=== PATIENT | female | born 1945 | race Two or more races ===

== ENCOUNTER → 2016-11-17 | Day surgery (SDC) | payer MEDICARE, OTHER ==
[~2016-11-17] MED LIST: ASPI81TA50 PO; CARV6.252 PO; GLYCOPYRROLATE 1 MG/5 ML VIAL. ONE; HYDR50TA6 PO; IV RINGERS,LACTATED 1000ML 1,000 ML IV SCH; LEVO100T5 PO; LIDOCAINE 2% PF Vial for OR 5 ML VIAL. ONE; LOSA1TAB22 PO; PRAV80TA2 PO; PROPOFOL 40 ML IV ONE
[2016-11-17 08:52] VITALS: BP 105/54
--- NOTE | 2016-11-17 12:18 | HP ---
ADMIT DATE: 11/17/2016 HISTORY OF PRESENT ILLNESS: A 71-year-old female with past medical history significant for arthritis, asthma and diverticulosis, comes with high blood pressure, seen for a screening colon exam. Bowel habits have been regular without melena or hematochezia. There has been some occasional constipation with lower abdominal pain. Prior hysterectomy is noted. CT scan of the abdomen and pelvis in the interim had been unrevealing. Weight and appetite are stable. She is otherwise without additional complaints. PAST MEDICAL HISTORY: Hypertension, asthma, arthritis and diverticulosis. ALLERGIES: LISINOPRIL. MEDICATIONS: Include aspirin, carvedilol, hydrochlorothiazide, levothyroxine, losartan and pravastatin. 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 She does not drink or smoke. FAMILY HISTORY: Noncontributory. REVIEW OF SYSTEMS: As above. PHYSICAL EXAMINATION: GENERAL: Reveals a well-nourished, well-developed female who is alert and cooperative. She is in no acute distress. VITAL SIGNS: Temperature is 97.8, pulse 90 and respirations 18. HEENT EXAMINATION: Normocephalic and atraumatic head. Pupils and extraocular muscles not tested. Sclerae anicteric. NECK: Supple. LUNGS: Clear. CARDIOVASCULAR EXAMINATION: Reveals an S1, S2 without S3, S4 or appreciable murmur. ABDOMEN: Reveals a soft abdomen. Normoactive bowel sounds, without appreciable hepatosplenomegaly. EXTREMITIES: Reveals no cyanosis, clubbing or edema. IMPRESSION AND PLAN: Colorectal screening is warranted at this time. Risks and benefits of the procedure including risk of perforation during the operation have been discussed and the patient is willing to proceed. DAISY RANDALL MD DR: LORA/shyann JOB#: [id number] / [id number]
== END | disposition home or self-care (01) ==
LOC: SURG 07:19
PROVIDERS: ATTEND Internal Medicine Gastroenterology
DX: Z12.11 Encounter for screening for malignant neoplasm of colon (principal); K64.0 First degree hemorrhoids; K57.30 Diverticulosis of large intestine without perforation or abscess without bleeding; E78.00 Pure hypercholesterolemia, unspecified; I10 Essential (primary) hypertension; M19.91 Primary osteoarthritis, unspecified site; E03.9 Hypothyroidism, unspecified; Z90.710 Acquired absence of both cervix and uterus; Z87.39 Personal history of other diseases of the musculoskeletal system and connective tissue; Z86.39 Personal history of other endocrine, nutritional and metabolic disease; Z88.8 Allergy status to other drugs, medicaments and biological substances
CPT/HCPCS: G0121; J2704; J3490; J2001